=== PATIENT | female | born 1970 | race Caucasian/White ===

== ENCOUNTER 2017-04-21 11:50 | Day surgery (SDC) | payer OTHER ==
[~2017-04-21] VITALS: Ht 177.8 cm; Wt 78.9 kg
[~2017-04-21 11:50] MED LIST: ADVIL200 MG PO; ALBUTEROL2.5 MG/3 M INH; BUSPIRONE HCL7.5 MG PO; COMBIVENT RESPIM4 GM INH; DAILY VITE1 EACH PO; GABAPENTIN300 MG PO; IPRATROPIUM BRO30 ML NAS; LUTERA1 EACH PO; METOPROLOL TART25 MG PO; OMEPRAZOLE40 MG PO; PROBIOTIC1 EAC1 PO; VENTOLIN HFA18 GM INH
--- NOTE | 2017-04-21 13:26 | NUR ---
04/21/17 1326 Rosa Isela Lorenzo 1322-PATIENT ARRIVED TO PACU ON 3L NC O2 SAT 100% PATIENT NONAROUSABLE. ABDOMEN SOFT. LAYING ON LEFT LATERAL.
--- NOTE | 2017-04-22 07:58 | OR ---
[facility] [address], [place] [address] Signed DATE OF OPERATION: 04/21/2017 SURGEON: Rodrigue Pina MD PREOPERATIVE DIAGNOSES: 1. Abdominal bloating, multiple bowel movements, unresponsive to nondairy diet. 2. History of ventricular tachycardic dysrhythmias. POSTOPERATIVE DIAGNOSES: 1. Normal-appearing colon and ileum. 2. Possible small polyp of transverse colon. PROCEDURES: 1. Total colonoscopy to cecum with biopsies. 2. Cold morcellation polypectomy of mid transverse colon polyp. ANESTHESIA: Propofol infusion, Benny Ladd CRNA. INDICATION: This 46-year-old white woman is a patient of Dr. Sanchez and also Socorro Pond. She has had complaints of bloating and multiple bowel movements 3 to 8 times a day as well as diarrhea. She has had no blood per rectum. Withdrawal of dairy products from her diet resulted in no beneficial change. She also has a long-standing history of ventricular tachycardic arrhythmias, including bigeminy and trigeminy and has had extensive evaluation for that by a acid conditioning worker, Dr. Villalobos at [facility]. She has no associated chest pain or shortness of breath with these episodes. She is admitted at this time to undergo a colonoscopy to better characterize the source of her bowel complaints, in particular to rule out inflammatory bowel disease. She has not had a colonoscopy earlier endoscopic evaluation in the past. The risks of bleeding, infection, and perforation related to colonoscopy were reviewed with her. She understands and wished to proceed. FINDINGS: The prep was excellent. Complete colonoscopy was undertaken of the cecum. Intubation of the ileum was accomplished as well. The ileum and bowel appeared normal except for one mucosal area of the mid transverse colon, which most likely represented hyperplasia. There were random biopsies throughout including the ileum and rectum and elsewhere as well as biopsy of the mucosal lesion. There was no evidence of diverticulosis, polyps, cancer, and certainly no gross evidence of inflammatory bowel disease. The possibility of occult colitis (collagenous colitis and so on) remains pending pathology report. Electronically Signed By: RODRIGUE PINA MD 04/22/17 0758 PATIENT NAME: KIMBER LYON OPERATIVE REPORT DATE OF : 68 PHYSICIAN: RODRIGUE PINA MD REPORT #: [id number] REPORT IS CONFIDENTIAL AND NOT TO BE RELEASED WITHOUT AUTHORIZATION [facility] [address], [place] [address] Signed DESCRIPTION OF PROCEDURE: The patient was brought to the endoscopy suite and placed in lateral decubitus position, given intravenous sedation to the point of slurred speech and nystagmus with propofol infusional sedation by the software development analyst. Digital rectal examination was normal. An Olympus video colonoscope was passed in the rectum and manipulated throughout the colon, ultimately intubating the cecum itself. The appendiceal orifice was easily identified. The ileocecal valve was also identified and the ileum intubated. The mucosal folds of the ileum were normal. Biopsies were obtained. The scope was withdrawn. A biopsy was then taken of the cecum of mucosa looked normal. Careful withdrawal of scope showed a small mucosal lesion in the transverse colon, which was multiply biopsied and ablated. Most likely, this represented hyperplasia. Further withdrawal of scope showed no other abnormality. Random biopsies were taken throughout including the rectum. Retroflexed view was normal. Scope was removed and the patient was taken to recovery room in good condition. CONCLUDING DIAGNOSES: Normal-appearing colon and ileum. Small mucosal lesion of transverse colon, not contributory to current symptoms. PLAN: We will initiate a low FODMAP diet. We will see back in 4 to 6 weeks and assess progress. MD RITCHIE Guerra/MODL /[id number] cc: Shaun Sanchez MD Electronically Signed By: RODRIGUE PINA MD 04/22/17 0758 PATIENT NAME: KIMBER LYON OPERATIVE REPORT DATE OF : 68 PHYSICIAN: RODRIGUE PINA MD REPORT #: [id number] REPORT IS CONFIDENTIAL AND NOT TO BE RELEASED WITHOUT AUTHORIZATION [facility] [address] [place] [address] Shaun [place] [address] Signed RADHA Santoyo Electronically Signed By: RODRIGUE PINA MD 04/22/17 0758 PATIENT NAME: KIMBER LYON OPERATIVE REPORT DATE OF : 68 PHYSICIAN: RODRIGUE PINA MD REPORT #: [id number] REPORT IS CONFIDENTIAL AND NOT TO BE RELEASED WITHOUT AUTHORIZATION
== END 2017-04-21 14:05 | disposition home or self-care (01) ==
LOC: DS 11:50 → OPS 11:50 → DS 13:00 → OPS 14:05
PROVIDERS: Surgery
PROC: 0DBL8ZX Excision of Transverse Colon, Via Natural or Artificial Opening Endoscopic, Diagnostic (ICD-10-PCS; 2017-04-21)
PROC: 0DBP8ZX Excision of Rectum, Via Natural or Artificial Opening Endoscopic, Diagnostic (ICD-10-PCS; 2017-04-21)
PROC: 0DBC8ZX Excision of Ileocecal Valve, Via Natural or Artificial Opening Endoscopic, Diagnostic (ICD-10-PCS; 2017-04-21)
PROC: 0DBH8ZX Excision of Cecum, Via Natural or Artificial Opening Endoscopic, Diagnostic (ICD-10-PCS; principal; 2017-04-21 13:00)
DX: K63.5 Polyp of colon (principal); K21.9 Gastro-esophageal reflux disease without esophagitis; I47.2 Ventricular tachycardia; G47.30 Sleep apnea, unspecified; J45.909 Unspecified asthma, uncomplicated; Z88.8 Allergy status to other drugs, medicaments and biological substances; Z90.89 Acquired absence of other organs; Z98.890 Other specified postprocedural states; Z79.899 Other long term (current) drug therapy
CPT/HCPCS: 00810; J2704; J7120

== ENCOUNTER 2017-05-17 22:39 | Emergency (ER) | payer OTHER ==
[~2017-05-17] VITALS: Ht 177.8 cm; Wt 79.4 kg
--- OUTSIDE RECORDS SUMMARY | ~2017-05-17 | XMS | Encounter Summary ---
Demographics + + + | Address | [address] | | | [place] [address] | + + + | Home Phone | | + + + | Preferred Language | Unknown | + + + | Marital Status | | + + + | Denominational Affiliation | Unknown | + + + | Race | White | + + + | Ethnic Group | Not or | + + + Author + + + | Author | [facility] | + + + | Organization | [facility] | + + + | Address | Unknown | + + + | Phone | Unavailable | + + + Support +------+ +---------+ + | Name | Relationship | Address | Phone | +------+ +---------+ + ECON | Unknown | | +------+ +---------+ + Care Team Providers + +------+-------+ | Care Boiler Welder Name | Role | Phone | + +------+-------+ | Shaun Sanchez MD | PCP | tel | + +------+-------+ Encounter Details +--------+ + + + + | Date | Type | Department | Care Team | Description | +--------+ + + + + | 04/23/ | MyChart | Cardiology General | | A message from your | | 2017 | Encounter | at [facility] [address] | | [employer] | | | | [address] Mailcode: | | | | | | [facility] | | | | | | [facility], | | | | | | [facility], | | | | | | [place] [address] | | | | | | [phone] | | | +--------+ + + + + Social History + +-------+ +--------+------+ | Tobacco Use | Types | Packs/Day | Years | Date | | | | | Used | | + +-------+ +--------+------+ | Never Smoker | | | | | + +-------+ +--------+------+ + +---+---+---+ | Smokeless Tobacco: | | | | | Never Used | | | | + +---+---+---+ + + +---------+ + | Alcohol Use | Drinks/We | oz/Week | Comments | | | ek | | | + + +---------+ + | Yes | 2 | 1.2 | few times a week | | | Glasses | | | | | of wine | | | + + +---------+ + + + + | Sex Assigned at | Date Recorded | | | | + + + | Not on file | | + + + as of this encounter Plan of Treatment Not on fileas of this encounter Visit Diagnoses Not on filein this encounter"
--- OUTSIDE RECORDS SUMMARY | ~2017-05-17 | XMS | Encounter Summary ---
Demographics + + + | Address | [address] | | | [place] [address] | + + + | Home Phone | | + + + | Preferred Language | Unknown | + + + | Marital Status | | + + + | Adventism Affiliation | Unknown | + + + | Race | White | + + + | Ethnic Group | Not or | + + + Author + + + | Author | [facility] | + + + | Organization | [facility] | + + + | Address | Unknown | + + + | Phone | Unavailable | + + + Support +------+ +---------+ + | Name | Relationship | Address | Phone | +------+ +---------+ + ECON | Unknown | | +------+ +---------+ + Care Team Providers + +------+-------+ | Care Behavioral Health Consultant Name | Role | Phone | + +------+-------+ | Shaun Sanchez MD | PCP | tel | + +------+-------+ Reason for Visit +--------+ + | Reason | Comments | +--------+ + | Other | Holter | +--------+ + Encounter Details +--------+ + + + + | Date | Type | Department | Care Team | Description | +--------+ + + + + | 04/07/ | Telephone | Cardiology in | Cristhian Villalobos MD | Other (Holter) | | 2017 | | [facility] | [address] | | | | | [place] at | [place], [place] | | | | | [place] [address] | [address] | | | | | [address] | [phone] | | | | | [place], [place] | | | | | | [address] | | | | | | [phone] | | | +--------+ + + + [...]
--- OUTSIDE RECORDS SUMMARY | ~2017-05-17 | XMS | Encounter Summary ---
Demographics + + + | Address | [address] | | | [place] [address] | + + + | Home Phone | | + + + | Preferred Language | Unknown | + + + | Marital Status | | + + + | Restorationist Affiliation | Unknown | + + + | Race | White | + + + | Ethnic Group | Not or | + + + Author + + + | Author | [facility] | + + + | Organization | [facility] | + + + | Address | Unknown | + + + | Phone | Unavailable | + + + Support +------+ +---------+ + | Name | Relationship | Address | Phone | +------+ +---------+ + ECON | Unknown | | +------+ +---------+ + Care Team Providers + +------+-------+ | Care Bus Driver School Name | Role | Phone | + +------+-------+ | Shaun Sanchez MD | PCP | tel | + +------+-------+ Reason for Visit + + + | Reason | Comments | + + + | Palpitations | | + + + Office Visit - E/M Services (Routine) +--------+--------+ + + + + | Status | Reason | Specialty | Diagnoses / | Referred By | Referred To | | | | | Procedures | Contact | Contact | +--------+--------+ + + + + | Closed | | Cardiology | Diagnoses | Laura, | Wilfredo | | | | | Deepthieminy | Shaun Osorio, | MD Cristhian | | | | | Irregular | | [address] | | | | | heart beat | [address] | [address] | | | | | Heart murmur | FAMILY | [place], [place] | | | | | Procedures | MEDICINE | [address] | | | | | CONSULT TO | [address] | Phone: | | | | | CARDIOLOGY | [address] | [phone] | | | | | MD EST | [place], | Fax: | | | | | PATIENT | [place] [address] | [phone] | | | | | LEVEL [address] | Phone: | | | | | | | [phone] | | | | | | | Fax: | | | | | | | [phone] | | +--------+--------+ + + + + Encounter Details +--------+---------+ + + + | Date | Type | Department | Care Team | Description | +--------+---------+ + + + | 02/24/ | Office | Cardiology in | Cristhian Villalobos MD | PVC's (premature | | 2017 | Visit | [facility] | [address] | ventricular | | | | Health at [facility] [address] | [place], [place] | contractions) | | | | [address] [facility] | [address] | (Primary Dx); Heart | | | | [address] | [phone] | palpitations; | | | | Pavilion [address] Floor | | Systolic murmur | | | | [place], [place] | | | | | | [address] | | | | | | [phone] | | | +--------+---------+ + + + Social History + +-------+ [...] + + + as of this encounter Last Filed Vital Signs + + + + | Vital Sign | Reading | Time Taken | + + + + | Blood Pressure | 110/64 | 02/24/2017 9:30 AM PDT | + + + + | Pulse | 69 | 02/24/2017 9:30 AM PDT | + + + + | Temperature | - | - | + + + + | Respiratory Rate | - | - | + + + + | Oxygen Saturation | 100% | 02/24/2017 9:30 AM PDT | + + + + | Inhaled Oxygen | - | - | | Concentration | | | + + + + | Weight | 81.6 kg (179 lb 12.8 | 02/24/2017 9:30 AM PDT | | | oz) | | + + + + | Height | 177.8 cm (5' 10") | 02/24/2017 9:30 AM PDT | + + + + | Body Mass Index | 25.8 | 02/24/2017 9:30 AM PDT | + + + + in this encounter Instructions Patient Instructions - Cristhian Villalobos MD - 02/24/2017 10:00 AM PDT1. No further testing karel or to the colonoscopy 2. Since you are feeling well overall try cutting the metoprolol in half for two weeks to 2 5mg once daily. Take 25mg once daily for two weeks and then stop it completely. If you feel an increase in palpitations have a another Holter monitor to understand your PVC burden of f beta blockade 3. If you have the Holter monitor done then call me 4. No scheduled follow up at this time. in this encounter Progress Notes Cristhian Villalobos MD - 02/24/2017 10:00 AM PDTFormatting of this note may be different from yong skinner. [facility] Name: Marta Ivey : 1970 Referring Provider: Shaun Sanchez MD Primary Care Provider: Shaun Sanchez MD Date of Visit: 02/24/17 Cardiac Problem List: 1. Palpitations - Baseline echocardiogram Outside 05/07/16: Normal LV/RV size and function. Mild mitral reg urgitation. Mild TR. - Holter Mar 2016 off all beta blockers: short SVT and PVC burden of 4.8%. - metoprolol succinate 50mg once daily started August 2015 - Holter 08/28/16 [facility]: 10% PVC burden on a beta kaley 2. Atypical chest discomfort and shortness of breath - stress echocardiogram at [facility] 08/28/16: negative for ischemia. ECG with PVCS at rest that were upright in II, III< avF, V4-V6, and negative in AVL. PVC burden reduced with exercise a nd then increased again in recovery. Chief Complaint: 46 yo F asthma, first seen August 2016 for palpitations and shortness of br eath here today for follow up after a series of tests. History of Illness: 46 yo F asthma, first seen August 2016 for palpitations and shortness of breath here today for follow up after a series of tests. Since her last visit: 1. Holter 08/28/16 [facility]: 10% PVC burden on toprol xL 50mg once daily 2. Stress echocardiogram at [facility] 08/28/16: negative for ischemia. ECG with PVCS at rest that were upright in II, III< avF, V4-V6, and negative in AVL. PVC burden reduced with exercise and then increased again in recovery. 3. Saw pulmonary - combivent started 4. Sleep study negative for sleep apnea Today she is here with her . She feels sig better since her fist visit and thinks it was the adjustment in inhalers that has made the difference. We reviewed her test results. She remains on the toprol 50mg once daily and says she feels great. Has not had any botherso me palpitations. No chest pain. No unusual shortness of breath> Review of systems: Please see HPI and PMHx. She snores and says she makes " Comprehensive 12 point review of systems otherwise negative by interview Current Outpatient Prescriptions: albuterol 90 mcg/actuation inhalation HFA aerosol inhaler , Inhale 1-2 puffs by mouth every four hours as needed., Disp: , Rfl: busPIRone 7.5 mg oral tablet, Take 7.5 mg by mouth two times daily., Disp: , Rfl: fluticasone 50 mcg/actuation nasal spray,suspension, Instill 50 sprays in nose once daily., Disp: , Rfl: IBUPROFEN (ADVIL ORAL), Take by mouth as needed., Disp: , Rfl: ipratropium 0.03 % nasal spray,non-aerosol, Instill in nose., Disp: , Rfl: ipratropium-albuterol 20-100 mcg/actuation inhalation mist, Inhale 1 puff four times daily. Indications: Chronic Obstructive Pulmonary Disease with Bronchospasms, Disp: 1 Inhaler, Rfl : 11 ipratropium-albuterol 20-100 mcg/actuation inhalation mist, Inhale 1 puff four times daily. Indications: Chronic Obstructive Pulmonary Disease with Bronchospasms, Disp: 1 Inhaler, Rfl : 12 LUTERA, 28, 0.1-20 mg-mcg oral tablet, Take 25 tablets by mouth once daily., Disp: , Rfl: 9 metoprolol succinate 50 mg oral tablet extended release 24 hr, Take 1 tablet by mouth once daily. Indications: Premature Ventricular Contractions, Disp: 90 tablet, Rfl: 3 montelukast (SINGULAIR) 10 mg oral tablet, Take 1 tablet by mouth once daily. Indications: Exercise-Induced Bronchospasm Prevention, Disp: 30 tablet, Rfl: 11 multivitamin-therapeutic minerals (VITAMINS AND MINERALS) oral tablet, Take by mouth once daily., Disp: , Rfl: omeprazole 40 mg oral capsule,delayed release(DR/EC), Take 40 mg by mouth once daily., Disp : , Rfl: 6 Physical Exam Vitals: Filed Vitals: 02/24/2017 9:30 AM Height: 1.778 m (5' 10") Weight: 81.6 kg (179 lb 12.8 oz) BP: 110/64 Pulse: 69 SpO2: 100% PainSc: 0 - Zero BMI: 25.8 kg/(m^2) General: Well-appearing, cooperative, in no distress HEENT: Normal palate, uvula, good dentition. Normal oral mucosa. No JVD. Carotids 2+ bila terally. No carotid bruits Chest: Clear to auscultation bilaterally. No rales. No wheezing. No pectus deformity CV: Normal S1, S2. Soft systolic murmur at the RUSB Pulses: 2+ carotids, 2+ radial, 2+ DP pulses BL GI: Non-tender, non-distended, no hepatosplenomegaly, no masses palpated. Ext: No lower extremity edema Skin: Warm, no rashes. MSK: No significant kyphoscoliosis, normal muscle tone and strength. Neuro/Psych: A+O x 3, normal mood and affect. Impression: 46 yo F with asthma, symptomatic PVCs here for follow up. Holter monitor on 50mg of metopro lol succinate daily with 10% PVCS. Stress echocardiogram neg for ischemia with PVCs at basel ine and in recovery appear to be originating from the R base. Discussed her PVCs today - see below Recommendations 1. Symptomatic PVCs - currently on toprol xL 50mg once daily. Since her last visit she feels sig better with th e addition of an inhaler for her asthma - pre BB Holter monitor in Mar 2016 reported < 5% PVCs - suggested she try and wean the metoprolol over a 4 week period, and re evaluate her sympt oms. If bothersome palpitations she can have a Holter done locally (I already ordered it). I f PVC burden is high then we will consider a referral to EP to discuss management. 2. Systolic murmur - re reviewed baseline echocardiogram Apr 2016 -images in our system not complete but repor t mentioned normal AoV morphology with normal mitral regurgitation and TR - no further workup at this time 3. Pre colonoscopy: no further cardiac testing is necessary. 4. Follow up: no scheduled follow up at this time, asked her to let us know if she winds up getting a Holter locally. Thank you for referring Marta Ivey to the [facility] for [facility] care. Please call with questions. Cristhian Villalobos MD Advertising Photographer [facility] Pager: [phone] in this encounter Plan of Treatment + +--------+ + + | Name | Priori | Associated Diagnoses | Order Schedule | | | ty | | | + +--------+ + + | HOLTER MONITOR (24 HR OR 48 HR) - | Routin | Heart palpitations | Ordered: 02/24/2017 | | ECG | e | PVC's (premature | | | | | ventricular | | | | | contractions) | | + +--------+ + + as of this encounter Visit Diagnoses + + | Diagnosis | + + | PVC's (premature ventricular contractions) - Primary | + + | Other premature beats | + + | Heart palpitations | + + | Palpitations | + + | Systolic murmur | + + | Undiagnosed cardiac murmurs | + +
--- OUTSIDE RECORDS SUMMARY | ~2017-05-17 | XMS | Encounter Summary ---
Demographics + + + | Address | [address] | | | [place] [address] | + + + | Home Phone | | + + + | Preferred Language | Unknown | + + + | Marital Status | | + + + | Lutheran Affiliation | Unknown | + + + | Race | White | + + + | Ethnic Group | Not or | + + + Author + + + | Author | [facility] | + + + | Organization | [facility] | + + + | Address | Unknown | + + + | Phone | Unavailable | + + + Support +------+ +---------+ + | Name | Relationship | Address | Phone | +------+ +---------+ + ECON | Unknown | | +------+ +---------+ + Care Team Providers + +------+-------+ | Care Production Truck Driver Name | Role | Phone | + +------+-------+ | Shaun Sanchez MD | PCP | tel | + +------+-------+ Encounter Details +--------+ + + + + | Date | Type | Department | Care Team | Description | +--------+ + + + + | 04/22/ | Abstract | Cardiology in | Cristhian Villalobos MD | | | 2017 | | [facility] | [address] | | | | | [place] at | [place], [place] | | | | | [place] [address] | [address] | | | | | [facility] [address] | [phone] | | | | | [place], [place] | | | | | | [address] | | | | | | [phone] | | | +--------+ + + + [...]
--- OUTSIDE RECORDS SUMMARY | ~2017-05-17 | XMS | Clinical Summary ---
Demographics + + + | Address | [address] | | | [place] [address] | + + + | Home Phone | | + + + | Preferred Language | Unknown | + + + | Marital Status | | + + + | Yazidi Affiliation | Unknown | + + + | Race | White | + + + | Ethnic Group | Not or | + + + Author + + + | Author | NON REVENUE LOCATIONS | + + + | Organization | NON REVENUE LOCATIONS | + + + | Address | Unknown | + + + | Phone | Unavailable | + + + Support +------+ +---------+ + | Name | Relationship | Address | Phone | +------+ +---------+ + ECON | Unknown | | +------+ +---------+ + Care Team Providers + +------+-------+ | Care Loom Fixer Helper Name | Role | Phone | + +------+-------+ | Shaun Sanchez MD | PP | tel | + +------+-------+ Source Comments TANA is fully live on both [facility] and [facility] InPatient.[facility] Allergies + + + + + + | Active Allergy | Reactions | Severity | Noted | Comments | | | | | Date | | + + + + + + | Adhesive Tape | Rash | Medium | 05/07/20 | | | | | | 16 | | + + + + + + | Meperidine Hcl | Nausea and Vomiting | Low | 08/13/19 | | | | | | 17 | | + + + + + + Current Medications + + +---------+---------+------+------+-------+ | Prescription | Sig. | Disp. | Refills | Star | End | Statu | | | | | | t | Date | s | | | | | | Date | | | + + +---------+---------+------+------+-------+ | busPIRone 7.5 mg | Take 7.5 mg by mouth | | | | | Activ | | oral tablet | two times daily. | | | | | e | + + +---------+---------+------+------+-------+ | omeprazole 40 mg | Take 40 mg by mouth | | 6 | 02 | | Activ | | oral capsule,delayed | once daily. | | | 08/03 | | e | | release(DR/EC) | | | | 17 | | | + + +---------+---------+------+------+-------+ | fluticasone 50 | Instill 50 sprays in | | | | | Activ | | mcg/actuation nasal | nose once daily. | | | | | e | | spray,suspension | | | | | | | + + +---------+---------+------+------+-------+ | LUTERA, 28, 0.1-20 | Take 25 tablets by | | 9 | 06/18 | | Activ | | mg-mcg oral tablet | mouth once daily. | | | 06/05 | | e | | | | | | 17 | | | + + +---------+---------+------+------+-------+ | | Take by mouth once | | | | | Activ | | multivitamin-therape | daily. | | | | | e | | utic minerals | | | | | | | | (VITAMINS AND | | | | | | | | MINERALS) oral | | | | | | | | tablet | | | | | | | + + +---------+---------+------+------+-------+ | ipratropium 0.03 % | Instill in nose. | | | | | Activ | | nasal | | | | | | e | | spray,non-aerosol | | | | | | | + + +---------+---------+------+------+-------+ | IBUPROFEN (ADVIL | Take by mouth as | | | | | Activ | | ORAL) | needed. | | | | | e | + + +---------+---------+------+------+-------+ | albuterol 90 | Inhale 1-2 puffs by | | | | | Activ | | mcg/actuation | mouth every four | | | | | e | | inhalation HFA | hours as needed. | | | | | | | aerosol inhaler | | | | | | | + + +---------+---------+------+------+-------+ | | Inhale 1 puff four | 1 | 12 | 05/2 | | Activ | | ipratropium-albutero | times daily. | Inhaler | | 3/20 | | e | | l 20-100 | Indications: Chronic | | | 17 | | | | mcg/actuation | Obstructive | | | | | | | inhalation | Pulmonary Disease | | | | | | | mistIndications: | with Bronchospasms | | | | | | | Chronic Obstructive | | | | | | | | Pulmonary Disease | | | | | | | | with Bronchospasms | | | | | | | + + +---------+---------+------+------+-------+ | montelukast | Take 1 tablet by | 30 | 11 | 10/1 | | Activ | | (SINGULAIR) 10 mg | mouth once daily. | tablet | | 0/20 | | e | | oral | Indications: | | | 17 | | | | tabletIndications: | Exercise-Induced | | | | | | | Exercise-Induced | Bronchospasm | | | | | | | Bronchospasm | Prevention | | | | | | | Prevention | | | | | | | + + +---------+---------+------+------+-------+ | | Inhale 1 puff four | 1 | 11 | 10/1 | | Activ | | ipratropium-albutero | times daily. | Inhaler | | 0/20 | | e | | l 20-100 | Indications: Chronic | | | 17 | | | | mcg/actuation | Obstructive | | | | | | | inhalation | Pulmonary Disease | | | | | | | mistIndications: | with Bronchospasms | | | | | | | Chronic Obstructive | | | | | | | | Pulmonary Disease | | | | | | | | with Bronchospasms | | | | | | | + + +---------+---------+------+------+-------+ Active Problems + + + | Problem | Noted Date | + + + | Mild intermittent asthma | 10/09/2016 | + + + | Heart murmur | 10/09/2016 | + + + | Ventricular premature beats | 08/12/2016 | + + + + + | Overview: Overview: | | Holter Monitor 03/25/2016 | | 4.8% | + + Encounters +--------+ + + + + | Date | Type | Specialty | Care Team | Description | +--------+ + + + + | 04/23/ | MyChart | | | A message from your | | 2016 | Encounter | | | Horticultural Farm Manager | +--------+ + + + + | 04/22/ | Abstract | | Cristhian Villalobos MD | | | 2016 | | | | | +--------+ + + + + | 04/07/ | Telephone | | Cristhian Villalobos MD | Other (Holter) | | 2016 | | | | | +--------+ + + + + | 02/24/ | Office | | Cristhian Villalobos MD | PVC's (premature | | 2016 | Visit | | | ventricular | | | | | | contractions) | | | | | | (Primary Dx); Heart | | | | | | palpitations; | | | | | | Systolic murmur | +--------+ + + + + | 02/23/ | Office | | Courtney Thacker, | Mild intermittent | | 2016 | Visit | | ANP | asthma, unspecified | | | | | | whether complicated | | | | | | (Primary Dx) | +--------+ + + + + from Last 3 Months Immunizations + + + + | Name | Dates Previously Given | Next Due | + + + + | Influenza Injectable | 02/18/2017 | | | Quadrivalent (IIV4 | | | | P-Free) | | | + + + + Family History + + +------+ + | Medical History | Relation | Name | Comments | + + +------+ + | Other | Brother | | age 44, pacemaker at 42?, hx of substance | | | | | abuse | + + +------+ + | Cancer | Father | | pancreatic cancer | + + +------+ + | COPD | Mother | | | + + +------+ + + +------+ + + | Relation | Name | Status | Comments | + +------+ + + | Brother | | Alive | | + +------+ + + | Father | | | | + +------+ + + | Mother | | Alive | | + +------+ + + | Sister | | Alive | | + +------+ + + Social History + +-------+ +--------+------+ [...] on file | | + + + Last Filed Vital Signs + + + + | Vital Sign | Reading | Time Taken | + + + + | Blood Pressure | 110/64 | 02/24/2017 9:30 AM PDT | + + + + | Pulse | 69 | 02/24/2017 9:30 AM PDT | + + + + | Temperature | 36.2 C (97.2 F) | 02/23/2017 11:52 AM PDT | + + + + | Respiratory Rate | 22 | 02/23/2017 11:52 AM PDT | + + + + | Oxygen [...] AM PDT | + + + + Plan of Treatment + + + + + | Health Maintenance | Due Date | Last Done | Comments | + + + + + | PPSV PNEUMOCOCCAL | | | | | VACCINE | 0 | | | + + + + + | INFLUENZA VACCINE | Completed | 02/18/2017 | | | (FLU SHOT) | | | | + + + + + Results Not on filefrom Last 3 Months
[2017-05-17] MEDS ORDERED: FLOVENT DISKUS50 MCG INH (22:51)
--- NOTE | 2017-05-18 06:39 | EKG ---
[facility] [address] [place] [address] Signed Normal sinus rhythm Normal ECG When compared with ECG of 17-APR-2016 07:22, premature ventricular complexes are no longer present Confirmed by MARYAM ESTRADA MD ([id number]) on 05/18/2017 6:39:13 AM Electronically Signed By: MARYAM ESTRADA MD 05/18/17 0639 PATIENT NAME: KIMBER LYON EMMA Electrocardiogram DATE OF : 68 PHYSICIAN: MARYAM ESTRADA MD REPORT #: [id number] REPORT IS CONFIDENTIAL AND NOT TO BE RELEASED WITHOUT AUTHORIZATION
[2017-07-08] MEDS ORDERED: ULTRAM50 MG PO (14:59)
[2017-07-08] MEDS ORDERED: FLONASE ALLERG9.9 ML NAS (14:59)
== END 2017-05-18 01:04 | disposition home or self-care (01) ==
LOC: ED 22:39
DX: R07.89 Other chest pain (principal); K21.9 Gastro-esophageal reflux disease without esophagitis; J45.909 Unspecified asthma, uncomplicated; Z88.8 Allergy status to other drugs, medicaments and biological substances; Z79.899 Other long term (current) drug therapy
CPT/HCPCS: 80053; 83690; 84484; 85025; 93005; 93010; 99284

== ENCOUNTER 2017-07-13 07:00 | Day surgery (SDC) | payer OTHER ==
[~2017-07-13] VITALS: Ht 177.8 cm; Wt 79.4 kg
[~2017-07-13 07:00] MED LIST changes: +FLONASE ALLERG9.9 ML NAS; +FLOVENT DISKUS50 MCG INH; +ULTRAM50 MG PO
[2017-07-13] MEDS ORDERED: OXYCODON-ACETA1 EAC2 PO (11:16)
[2017-07-13] MEDS ORDERED: MAPAP325 MG PO (11:17)
[2017-07-13] MEDS ORDERED: ONDANSETRON ODT4 MG SL (11:17)
--- NOTE | 2017-07-22 14:11 | OR ---
[facility] [address], [place] [address] Signed DATE OF OPERATION: 07/13/2017 SURGEON: Rodrigue Pina MD PREOPERATIVE DIAGNOSES: 1. Chronic calculous cholecystitis. 2. 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 POSTOPERATIVE DIAGNOSES: 1. Chronic calculous cholecystitis. 2. 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 3. Chronic appendiceal inflammation. 4. Dense adhesions of fundus of uterus to anterior abdominal wall. PROCEDURES: 1. Laparoscopic cholecystectomy with intraoperative cholangiogram. 2. Surgeon-directed fluoroscopy. 3. Laparoscopic appendectomy. ANESTHESIA: General endotracheal by Rodrigue Colby CRNA, local 10 mL of 0.25% Marcaine. INDICATION: This 46-year-old white woman is a patient of Dr. Sanchez. She has had numerous medical problems in the past and underwent colonoscopy by me on April 21, 2017, for diarrhea problems. She has undergone cardiac evaluation at [facility] for palpitations, which did not show any pathologic problem. She was initiated on a low FODMAP diet and possibly she may have irritable bowel syndrome. Her colonoscopy was normal without signs of inflammatory bowel disease. She was noted on an MRI performed under the direction of Dr. Brower in [place] to have gallstones as well as an incidental finding of a 4.2 cm left adrenal mass. An ultrasound at [facility] a year ago showed no such gallstones. She has been having relatively vague right-sided abdominal pain and postprandial nausea. It was unclear if her symptoms were related to the gallbladder. As regard her diarrhea, she may still have an irritable bowel type problem though her symptoms with upper abdominal pain are more suggestive of the gallbladder itself. Urinary and serum testing shows no evidence of functional adrenal mass. Additional management of the mass will be anticipated in the future, but there is no clinical or chemical evidence of pheochromocytoma or other worrisome findings regarding the mass. Electronically Signed By: RODRIGUE PINA MD 07/22/17 1411 PATIENT NAME: KIMBER LYON OPERATIVE REPORT DATE OF : 68 REPORT #: [id number] PHYSICIAN: RODRIGUE PINA MD PCP: BEL SANCHEZ MD REPORT IS CONFIDENTIAL AND NOT TO BE RELEASED WITHOUT AUTHORIZATION [facility] [address] [place] [id number] Signed She is admitted at this time to undergo cholecystectomy preferred by laparoscopic approach and other indicated procedures depending on clinical findings. She understands the risks of bleeding, infection, bile duct injury, need for open procedure, failure to improve her symptoms, and other unforeseen complications. Understanding this she wished to proceed. FINDINGS: The gallbladder was indeed chronically inflamed. Notable was a relatively large hepatic artery coursing in the region of the infundibulum, which was left unharmed. It was apparently placed, no doubt. The gallbladder once excised showed multiple yellow mulberry gallstones. Cholangiogram was normal. Additionally noted was a normal liver. Additionally, she was noted to have an appendix, which was anteriorly placed in superiorly directed not far from the gallbladder itself actually. It appeared chronically inflamed. On that basis, it was resected. Palpation revealed possible fecalith within the appendix, so this is not certain. The terminal ileum was normal. Additionally noted was dense adherence of the fundus of the uterus to the suprapubic area, where a transverse incision was made from the past. It was impressively densely adherent. Whether it is contributing to her symptoms at all is uncertain. Both adnexa appeared normal. There were no other findings of concern. DESCRIPTION OF PROCEDURE: The patient was brought to the operating room, given a general endotracheal anesthetic. Preoperative antibiotic Ancef was given. Sequential compression device stockings were used and heparin subcutaneously administered. She suffered no hypertension or tachycardia at induction or at any other time during the operation. The abdomen was prepared with a chlorhexidine solution and draped sterilely. An infraumbilical incision was made. Palpation of a soft tissue mass in the depth of the umbilicus was noted. Entry into the abdomen was out without problem with an open technique. Palpation of the under surface revealed no herniation of fat or small bowel viscera. The fatty lesion likely represented an epiplocele. With Mae technique, a cannula was placed and pneumoperitoneum achieved to a level of 14 mmHg of carbon dioxide gas. Intraabdominal inspection was undertaken showing no sign of ascites or carcinomatosis. The liver appeared normal. Three additional trocars were placed in usual configuration in the subxiphoid, right midclavicular, and right anterior axillary line. The gallbladder was elevated cephalad and retracted laterally. Quite obvious and dominant was a very large artery coursing over the area of the infundibulum and cystic duct area. No doubt this represented the proper hepatic artery somewhat Electronically Signed By: RODRIGUE PINA MD 07/22/17 1411 PATIENT NAME: KIMBER LYON OPERATIVE REPORT DATE OF : 68 REPORT #: [id number] PHYSICIAN: RODRIGUE PINA MD PCP: BEL SANCHEZ MD REPORT IS CONFIDENTIAL AND NOT TO BE RELEASED WITHOUT AUTHORIZATION [address] [place] [address] Signed apparently placed. The gallbladder was carefully retracted laterally, and using blunt and electrocautery dissection, the triangle of Calot dissected free taking extreme care to avoid interruption of large artery. Clips were applied to cystic arterial branches in the region. Once the triangle of Calot was well-defined, a clip applied across gallbladder cystic duct junction. A transverse choledochotomy was made in the cystic duct and using an Christopher type cholangiocatheter intraoperative cholangiography was undertaken showing free flow of contrast in the biliary tree with prompt emptying into the duodenum. As there was not much retrograde flow in the common hepatic duct, 4 mg of morphine were administered. After a few minutes, repeat cholangiogram was undertaken showing good retrograde filling into the proximal biliary tree. There was no sign of filling defect or anomaly. The catheter was removed and the cystic duct was triply clipped and divided. Gallbladder was dissected free in a retrograde fashion with meticulous care and extracted through the infraumbilical port site without problem. The gallbladder was opened on the back table and found to have multiple yellow 1 cm gallstones. Reinspection of subhepatic space showed no sign of bleeding or other problem. Notable was the appendix, which was anteriorly placed and only a few centimeters really from the gallbladder. It was well cephalad to the usual site of the appendix. The ileum was identified by the antimesenteric fat pad of [place]. There was no sign of inflammatory bowel disease. Examination the lower abdomen showed the fundus of the uterus densely adherent to the anterior abdominal wall in the area where a dense transverse suprapubic incision has been noted. The left and right adnexa appeared entirely normal. Reinspection of the position and appearance of the appendix was undertaken, and the appendix looked chronically inflamed. Given its surprisingly close proximity to the right upper abdomen and given the ambiguity of her symptoms previously and a chronic inflammatory appearance of the appendix, appendectomy was deemed appropriate under the circumstances. The right lower quadrant 5 mm port was placed. With elevation of the appendix, a window was created between the appendix and mesoappendix and an Endo ZAYDA stapling device was used to transect the base of the appendix flushed with the cecum. This left the mesentery of the appendix well isolated and using Endo ZAYDA stapling device, again with a vascular load, it was transected. The appendix was extracted through the infraumbilical port site gently palpated and felt to have possible fecalith, though this is not certain. Irrigation was undertaken with a staple line. There was no sign of bleeding or other problems. Reinspection of subhepatic space showed no sign of bleeding, bile leak, or other problem. Excess irrigation fluid was suctioned free. The trocars were removed under direct visualization showing no sign of bleeding. The infraumbilical fascial Electronically Signed By: RODRIGUE PINA MD 07/22/17 1411 PATIENT NAME: KIMBER LYON OPERATIVE REPORT DATE OF : 68 REPORT #: [id number] PHYSICIAN: RODRIGUE PINA MD PCP: BEL SANCHEZ MD REPORT IS CONFIDENTIAL AND NOT TO BE RELEASED WITHOUT AUTHORIZATION [address] [address] Signed incision was reapproximated with interrupted 0 Vicryl suture. All wounds were copiously irrigated with saline solution and 10 mL of 0.25% Marcaine was injected locally for postoperative analgesic benefit. The skin was then closed with interrupted 3-0 Vicryl. Steri-Strips were applied. The patient was ultimately extubated and transferred to recovery in good condition having suffered no complication. Sponge, needle, and counts reported as correct x3 MD RITCHIE Guerra/MODL /[id number] cc: MD Socorro Monet WHNP Jonathan Hitzman, MD Copies: FRANCOIS BROWER MD, KATIE C WHNP HITZMAN, JONATHAN MD ~ Electronically Signed By: RODRIGUE PINA MD 07/22/17 1411 PATIENT NAME: KIMBER LYON OPERATIVE REPORT DATE OF : 68 REPORT #: [id number] PHYSICIAN: RODRIGUE PINA MD PCP: BEL SANCHEZ MD REPORT IS CONFIDENTIAL AND NOT TO BE RELEASED WITHOUT AUTHORIZATION
== END 2017-07-13 14:45 | disposition home or self-care (01) ==
LOC: DS 07:00
PROVIDERS: Surgery
PROC: 0DTJ4ZZ Resection of Appendix, Percutaneous Endoscopic Approach (ICD-10-PCS; 2017-07-13)
PROC: 0FT44ZZ Resection of Gallbladder, Percutaneous Endoscopic Approach (ICD-10-PCS; principal; 2017-07-13 08:30)
PROC: BF13YZZ Fluoroscopy of Gallbladder and Bile Ducts using Other Contrast (ICD-10-PCS; 2017-07-13 08:30)
DX: K80.10 Calculus of gallbladder with chronic cholecystitis without obstruction (principal); E27.8 Other specified disorders of adrenal gland; K58.9 Irritable bowel syndrome, unspecified; J45.909 Unspecified asthma, uncomplicated; K21.9 Gastro-esophageal reflux disease without esophagitis; G89.29 Other chronic pain; M54.9 Dorsalgia, unspecified; Z86.79 Personal history of other diseases of the circulatory system; Z98.890 Other specified postprocedural states; Z88.5 Allergy status to narcotic agent; Z79.899 Other long term (current) drug therapy
CPT/HCPCS: 00790; 74300; J0330; J0690; J1100; J1644; J1885; J2250; J2270; J2405; J2704; J2710; J2765; J3010; J7120; Q9967